=== PATIENT | male | born 1990 | race Two or more races ===

== ENCOUNTER → 2019-11-27 | Outpatient (CLI) | payer OTHER | END | disposition home or self-care (01) | LOC: RAD 10:04 | PROVIDERS: ATTEND Nurse Practitioner Primary Care | DX: S32.020A Wedge compression fracture of second lumbar vertebra, initial encounter for closed fracture (principal); M47.816 Spondylosis without myelopathy or radiculopathy, lumbar region; M48.07 Spinal stenosis, lumbosacral region; M51.27 Other intervertebral disc displacement, lumbosacral region; X58.XXXA Exposure to other specified factors, initial encounter; Y93.89 Activity, other specified; Y99.8 Other external cause status; Y92.89 Other specified places as the place of occurrence of the external cause | CPT/HCPCS: 72148 ==

== ENCOUNTER → 2020-09-30 | Outpatient (CLI) | payer OTHER ==
[~2020-09-30] MED LIST: OMNIPAQUE 350 MG/ML, 100ML BOTTLE ONE
== END | disposition home or self-care (01) ==
LOC: RAD 11:35
PROVIDERS: ATTEND Family Medicine
DX: K76.0 Fatty (change of) liver, not elsewhere classified (principal)
CPT/HCPCS: 74177; Q9967